=== PATIENT | male | born 1945 | race Asian ===

== ENCOUNTER 2024-05-10 08:37 | Outpatient (CLI) | payer MEDICARE, OTHER | END 2024-05-10 08:38 | disposition home or self-care (01) | LOC: BICMAMMO 08:37 | PROVIDERS: ATTEND Family Medicine | DX: Z13.820 Encounter for screening for osteoporosis (principal); M85.851 Other specified disorders of bone density and structure, right thigh | CPT/HCPCS: 77080 ==

== ENCOUNTER 2025-05-28 08:12 | Outpatient (CLI) | payer OTHER | END 2025-05-28 08:13 | disposition home or self-care (01) | LOC: SCSULT 08:12 | PROVIDERS: ATTEND Physician Assistant Medical | DX: R76.89 Other specified abnormal immunological findings in serum (principal); K76.0 Fatty (change of) liver, not elsewhere classified | CPT/HCPCS: 76705 ==